=== PATIENT | female | born 1970 | race Caucasian/White ===

== ENCOUNTER 2018-04-22 09:10 | Day surgery (SDC) | payer BC ==
[~2018-04-22] VITALS: Ht 172.7 cm; Wt 87.5 kg
[2018-04-22] VITALS (17 sets, daily range): BP systolic 108–124; BP diastolic 49–79
[~2018-04-22 09:10] MED LIST: TERB250T4 PO; cefazolin/dext.iso 2gm/100 ML IV ONE; famotidine 20mg tablet PO ONE; ringers solution, lacted 1,000 ML IV SCH
[2018-04-22] MEDS ORDERED: LIDOcaine 1% (10mg/ml) 2ml vial ONE (09:45)
[2018-04-22 09:57] LABS: BASOPHILS % (AUTO) 0.1 % (0-1); EOSINOPHILS % (AUTO) 0 % (0-6); HEMATOCRIT 38.9 % (35.0-45.0); LYMPHOCYTES # (AUTO) 1.8 X10'3 (1.1-4.8); LYMPHOCYTES % (AUTO) 23.9 % (21-51); MEAN CORPUSCULAR HEMOGLOBIN 28.8 PG (27.0-31.0); MEAN CORPUSCULAR HGB CONC 33.5 % (33.0-36.5); MEAN CORPUSCULAR VOLUME 86.2 FL (78-98); MEAN PLATELET VOLUME 7.8 FL (7.4-10.4); MONOCYTES # (AUTO) 0.5 X10'3 (0-0.9); MONOCYTES % (AUTO) 6.3 % (2-12); NEUTROPHILS # (AUTO) 5.2 X10'3 (1.8-7.7); NEUTROPHILS % (AUTO) 69.7 % (42-75); PLATELET COUNT 266 X10'3 (140-440); RED BLOOD COUNT 4.51 X10'6 (4.20-5.60); RED CELL DISTRIBUTION WIDTH 13.4 % (11.5-14.5); WHITE BLOOD COUNT 7.4 X10'3 (4.5-11.0)
[2018-04-22 10:12] LABS: ALANINE AMINOTRANSFERASE 17 U/L (12-78); ALBUMIN 3.8 G/DL (3.4-5.0); ALKALINE PHOSPHATASE 83 IU/L (46-116); ANION GAP 7 (8-16); ASPARTATE AMINO TRANSFERASE 13 U/L (10-37); BILIRUBIN,TOTAL 0.4 MG/DL (0.1-1.0); BLOOD UREA NITROGEN 12 MG/DL (7-18); BUN/CREATININE RATIO 14.5 (6.6-38.0); CALCIUM 8.9 MG/DL (8.5-10.1); CHLORIDE 102 MMOL/L (99-107); CREATININE 0.83 MG/DL (0.40-0.90); GLUCOSE 88 MG/DL (70-104); POTASSIUM 3.9 MMOL/L (3.5-5.1); SODIUM 139 MMOL/L (135-145); TOTAL CARBON DIOXIDE 29.7 MMOL/L (24-32); TOTAL PROTEIN 7.8 G/DL (6.4-8.2); eGFR 74 ML/MIN
[2018-04-22] MEDS ORDERED: fentaNYL/PF 50MCG/1 ML 2ML syringe ONE (13:35)
[2018-04-22] MEDS ORDERED: sevoflurane 250ml liquid IH ONE (13:40)
[2018-04-22] MEDS ORDERED: propofol inj 20 ML IV ONE (13:40)
[2018-04-22] MEDS ORDERED: ketorolac trometh. 30mg/ml inj. ONE (13:40)
[2018-04-22] MEDS ORDERED: neostigmine methylsulfate 1 MG/ML 10ml vial ONE (13:40)
[2018-04-22] MEDS ORDERED: rocuronium 10mg/ml inj IV ONE (13:40)
[2018-04-22] MEDS ORDERED: LIDOcaine 1%/PF 5ML 10 MG/ML VIAL ONE (13:40)
[2018-04-22] MEDS ORDERED: glycopyrrolate 0.2mg/ml inj ONE (13:40)
[2018-04-22] MEDS ORDERED: midazolam 2 mg/2 ml injection ONE (13:40)
[2018-04-22] MEDS ORDERED: dexamethasone sod phosphate 4mg/ml inj. ONE (13:52)
[2018-04-22] MEDS ORDERED: ondansetron/PF 4mg/2ml inj ONE (13:54)
[2018-04-22] MEDS ORDERED: ringers solution, lacted 1,000 ML IV SCH (14:42)
[2018-04-22] MEDS ORDERED: ondansetron/PF 4mg/2ml inj IV PRN (14:45)
[2018-04-22] MEDS ORDERED: meperidine/PF 25mg/ml syringe IV PRN ×3 (14:45)
[2018-04-22] MEDS ORDERED: proCHLORperazine 10 MG/2 ml inj IV PRN (14:45)
[2018-04-22] MEDS ORDERED: morphine 4 MG/ML inj SYRINge IV PRN ×2 (14:45)
== END 2018-04-22 16:45 | disposition home or self-care (01) ==
LOC: PAS 09:10
PROVIDERS: ATTEND Surgery
DX: K80.10 Calculus of gallbladder with chronic cholecystitis without obstruction (principal); F41.8 Other specified anxiety disorders; E66.9 Obesity, unspecified; F17.210 Nicotine dependence, cigarettes, uncomplicated; Z88.1 Allergy status to other antibiotic agents; Z68.29 Body mass index [BMI] 29.0-29.9, adult; Z90.89 Acquired absence of other organs; Z86.69 Personal history of other diseases of the nervous system and sense organs; Z72.89 Other problems related to lifestyle; Z79.899 Other long term (current) drug therapy
CPT/HCPCS: 36415; 47562; 80053; 85025; J0690; J1100; J1885; J2001; J2250; J2405; J2704; J2710; J3010; J3490; J7120; A6251; A7000